=== PATIENT | female | born 1995 | race African-American/Black ===

== ENCOUNTER 2016-11-03 07:45 | Outpatient (CLI) | payer OTHER ==
[2015-08-31 04:19] VITALS: BP 118/66
[2016-11-03 08:12] LABS: BASOPHILS % 0.3 (0.0-1.5); EOSINOPHILS % 1.8 % (0.0-6.8); MEAN CORPUSCULAR HEMOGLOBIN 30.7 pg (28.0-34.0); MEAN CORPUSCULAR VOLUME 101.1 fl (80.0-100.0); MONOCYTES % 5.3 % (0.0-11.0)
[2016-11-03 08:40] LABS: eGFR (African) > 60; eGFR (Non-African) > 60
== END 2016-11-03 07:46 ==
LOC: LAB 07:45
PROVIDERS: ATTEND Nurse Practitioner Psychiatric/Mental Health
DX: Z51.81 Encounter for therapeutic drug level monitoring (principal); Z79.899 Other long term (current) drug therapy
CPT/HCPCS: 36415; 80053; 80164; 85025

== ENCOUNTER 2017-01-15 08:30 | Outpatient (CLI) | payer OTHER ==
[2015-08-31 04:19] VITALS: BP 118/66
[2017-01-15 09:25] LABS: eGFR (African) > 60; eGFR (Non-African) > 60
== END 2017-01-15 08:32 ==
LOC: LAB 08:30
PROVIDERS: ATTEND Nurse Practitioner Psychiatric/Mental Health
DX: Z79.899 Other long term (current) drug therapy (principal)
CPT/HCPCS: 36415; 80053; 80164

== ENCOUNTER 2017-02-15 16:49 | Outpatient (CLI) | payer OTHER ==
[2015-08-31 04:19] VITALS: BP 118/66
[2017-02-15 17:16] LABS: BASOPHILS % 0.4 (0.0-1.5); MEAN CORPUSCULAR HEMOGLOBIN 29.6 pg (28.0-34.0); MEAN CORPUSCULAR VOLUME 90.8 fl (80.0-100.0); MONOCYTES % 7.1 % (0.0-11.0); NEUTROPHILS # 1.2 # k/uL (1.4-7.7)
[2017-02-15 17:44] LABS: eGFR (African) > 60; eGFR (Non-African) > 60
== END 2017-02-15 16:50 ==
LOC: LAB 16:49
PROVIDERS: ATTEND Nurse Practitioner Family
DX: T50.991A Poisoning by other drugs, medicaments and biological substances, accidental (unintentional), initial encounter (principal); Y92.9 Unspecified place or not applicable
CPT/HCPCS: 36415; 80053; 80177; 85025

== ENCOUNTER → 2017-04-16 | Outpatient (CLI) | payer OTHER ==
[2015-08-31 04:19] VITALS: BP 118/66
[2017-04-16 09:19] LABS: BASOPHILS % 0.5 (0.0-1.5); EOSINOPHILS % 1.4 % (0.0-6.8); MEAN CORPUSCULAR HEMOGLOBIN 30.3 pg (28.0-34.0); MEAN CORPUSCULAR VOLUME 93.5 fl (80.0-100.0); MONOCYTES % 8.6 % (0.0-11.0)
[2017-04-16 09:51] LABS: eGFR (African) > 60; eGFR (Non-African) > 60
== END ==
LOC: LAB 08:38
PROVIDERS: ATTEND Nurse Practitioner Psychiatric/Mental Health
DX: Z51.81 Encounter for therapeutic drug level monitoring (principal); Z79.899 Other long term (current) drug therapy
CPT/HCPCS: 36415; 80053; 80164; 84443; 85025

== ENCOUNTER 2017-07-16 09:44 | Outpatient (CLI) | payer OTHER ==
[2015-08-31 04:19] VITALS: BP 118/66
[2017-07-16 11:00] LABS: eGFR (African) > 60; eGFR (Non-African) > 60
== END 2017-07-16 11:21 ==
LOC: LAB 09:44
PROVIDERS: ATTEND Psychiatry & Neurology Psychiatry
DX: Z51.81 Encounter for therapeutic drug level monitoring (principal)
CPT/HCPCS: 36415; 80053; 80164

== ENCOUNTER 2017-10-18 08:16 | Outpatient (CLI) | payer OTHER ==
[2015-08-31 04:19] VITALS: BP 118/66
[2017-10-18 09:06] LABS: BASOPHILS % 0.2 (0.0-1.5); EOSINOPHILS % 1.8 % (0.0-6.8); MEAN CORPUSCULAR HEMOGLOBIN 30.5 pg (28.0-34.0); MEAN CORPUSCULAR VOLUME 96.3 fl (80.0-100.0); MONOCYTES % 9.8 % (0.0-11.0); NEUTROPHILS # 1.1 # k/uL (1.4-7.7)
[2017-10-18 09:15] LABS: eGFR (African) > 60; eGFR (Non-African) > 60
== END 2017-10-18 08:17 ==
LOC: LAB 08:16
PROVIDERS: ATTEND Nurse Practitioner Family
DX: Z51.81 Encounter for therapeutic drug level monitoring (principal); Z79.899 Other long term (current) drug therapy
CPT/HCPCS: 36415; 80053; 80164; 84443; 85025

== ENCOUNTER 2018-01-19 09:38 | Outpatient (CLI) | payer OTHER ==
[2015-08-31 04:19] VITALS: BP 118/66
[2018-01-19 18:51] LABS: BASO % 0.6 % (0.0-1.5); MCH. 30.7 pg (28.0-34.0); MCV 96.8 fL (80.0-100.0); MONOCYTE % 10.6 % (0.0-11.0); MONOCYTE ABS # 0.45 thou/uL (0.00-0.90); PLATELET COUNT 127 thou/uL (130-400)
[2018-01-19 20:41] LABS: TOTAL PROTEIN 6.5 g/dL (6.0-8.5)
== END 2018-01-19 09:40 ==
LOC: LAB 09:38
PROVIDERS: ATTEND Nurse Practitioner Family
DX: Z51.81 Encounter for therapeutic drug level monitoring (principal); Z79.899 Other long term (current) drug therapy
CPT/HCPCS: 36415; 80053; 80164; 85025

== ENCOUNTER 2018-04-22 09:15 | Outpatient (CLI) | payer OTHER ==
[2015-08-31 04:19] VITALS: BP 118/66
[2018-04-22 10:41] LABS: eGFR (Non-African) > 60
== END 2018-04-22 09:25 ==
LOC: LAB 09:15
PROVIDERS: ATTEND Nurse Practitioner Family
DX: Z79.899 Other long term (current) drug therapy (principal); Z51.81 Encounter for therapeutic drug level monitoring
CPT/HCPCS: 36415; 80053; 80061; 80164